=== PATIENT | female | born 1970 | race African-American/Black ===

== ENCOUNTER 2018-11-20 10:50 | Inpatient (IN) | payer OTHER ==
[~2018-11-20] VITALS: Ht 157.5 cm; Wt 74.4 kg
[2018-11-20 11:45] LABS: BASOPHILS % 0.9 % (0.0-2.0); EOSINOPHILS % 1.3 % (0.0-5.0); HEMATOCRIT. 42.3 % (36.0-48.0); HEMOGLOBIN. 13.9 g/dL (12.0-16.0); LYMPHOCYTES % 27.6 % (20.0-50.0); MEAN CORPUSCULAR HEMOGLOBIN 30.8 pg (28.0-32.0); MEAN CORPUSCULAR VOLUME 93.9 fL (81.0-99.0); MEAN PLATELET VOLUME 8.8 fl (7.4-10.4); MONOCYTES % 5.3 % (2.0-8.0); NEUTROPHILS % 64.9 % (40.0-76.0); PLATELET 331 x1000/uL (130-400); RED BLOOD CELL COUNT 4.51 mill/uL (4.2-5.4)
[2018-11-20 11:53] LABS: CHLORIDE 107 mEq/L (98-107)
[2018-11-20 11:54] LABS: PARTIAL THROMBOPLASTIN TIME 28.9 sec (23.4-31.0); PROTHROMBIN TIME 10.5 sec (9.6-11.0)
[2018-11-20 12:02] LABS: LDL CHOLESTEROL 124 mg/dL (5-100)
[2018-11-20 12:14] LABS: HCG SCREEN NEGATIVE
[2018-11-20] MEDS ORDERED: IOHEXOL-350 100 ML BOTTLE ONE (12:32)
[2018-11-20] MEDS ORDERED: ASPIRIN 325MG EC TABLET PO ONE (12:45)
[2018-11-20 13:22] LABS: CHLORIDE 106 mEq/L (98-107)
[2018-11-20] MEDS ORDERED: ACETAMINOPHEN 325MG TABLET PO PRN (16:30)
[2018-11-20] MEDS ORDERED: ONDANSETRON HCL 4MG/2ML INJ IV PRN (16:30)
[2018-11-20 17:00] VITALS: BP 159/85
[2018-11-20] MEDS ORDERED: ENOXAPARIN 40MG/0.4ML SYR SUBCUT SCH (17:30)
[2018-11-20] MEDS ORDERED: MORPHINE SULFATE 2 MG/ML CPJ (NOT FOR IM USE) IV PRN (18:45)
[2018-11-20 20:00] VITALS: BP 124/70
[2018-11-20] MEDS ORDERED: ATORVASTATIN CALCIUM 40MG TABLET PO SCH (21:00)
[2018-11-20] MEDS: HYDROCODONE/ACETAMINOPHEN 5/325MG TABLET PO PRN (22:17)
[2018-11-20] MEDS: AMLODIPINE 5MG TABLET PO SCH (22:18)
[2018-11-21] VITALS: BP 106/63
[2018-11-21 04:00] VITALS: BP 116/70
[2018-11-21 07:34] LABS: CHLORIDE 106 mEq/L (98-107)
[2018-11-21 07:40] LABS: BASOPHILS % 0.8 % (0.0-2.0); EOSINOPHILS % 1.8 % (0.0-5.0); HEMATOCRIT. 39.8 % (36.0-48.0); HEMOGLOBIN. 13.2 g/dL (12.0-16.0); LYMPHOCYTES % 39.7 % (20.0-50.0); MEAN CORPUSCULAR HEMOGLOBIN 30.8 pg (28.0-32.0); MEAN CORPUSCULAR VOLUME 93.1 fL (81.0-99.0); MEAN PLATELET VOLUME 8.5 fl (7.4-10.4); MONOCYTES % 6.6 % (2.0-8.0); NEUTROPHILS % 51.1 % (40.0-76.0); PLATELET 314 x1000/uL (130-400); RED BLOOD CELL COUNT 4.28 mill/uL (4.2-5.4); RED CELL DISTRIBUTION WIDTH 13.9 % (11.6-14.6)
[2018-11-21 08:00] VITALS: BP 128/78
[2018-11-21] MEDS ORDERED: ASPIRIN 81MG TABLET PO SCH (09:00)
[2018-11-21] MEDS: AMLODIPINE 5MG TABLET PO SCH (09:03)
[2018-11-21] MEDS: HYDROCODONE/ACETAMINOPHEN 5/325MG TABLET PO PRN (09:03)
[2018-11-21 14:24] VITALS: BP 128/78
== END 2018-11-21 16:21 | disposition home or self-care (01) | DRG 47 ==
LOC: ER 10:50 → 6WST 16:14 → EDBEDREQ 16:20 → EDBEDREQTM 16:20 → ENRESERV 16:33 → 6WST 11-21 01:30
PROVIDERS: ADMIT Internal Medicine; ATTEND Internal Medicine
DX: G45.9 Transient cerebral ischemic attack, unspecified (principal); E87.5 Hyperkalemia; I10 Essential (primary) hypertension; E78.5 Hyperlipidemia, unspecified; Z59.7 Insufficient social insurance and welfare support; Z88.2 Allergy status to sulfonamides
CPT/HCPCS: 36415; 70496; 70498; 70551; 71045; 72141; 72148; 80048; 82962; 83721; 84484; 84703; 93005; 93970; 96372; 97162; 99291; J1650; Q9967

== ENCOUNTER 2020-02-01 13:49 | Emergency (ER) | payer MEDICAID, OTHER ==
[~2020-02-01] VITALS: Ht 157.5 cm; Wt 68.0 kg
[2020-02-01] MEDS ORDERED: ACETAMINOPHEN 325MG TABLET PO ONE (14:30)
[2020-02-01] MEDS ORDERED: ALBUTEROL 6.7GM HFA INHALER ORI ONE (15:00)
[2020-02-01 15:25] LABS: BASOPHILS % 0.6 % (0.0-2.0); EOSINOPHILS % 0.2 % (0.0-5.0); HEMATOCRIT. 42.9 % (36.0-48.0); HEMOGLOBIN. 14.1 g/dL (12.0-16.0); LYMPHOCYTES % 24.6 % (20.0-50.0); MEAN CORPUSCULAR HEMOGLOBIN 29.7 pg (28.0-32.0); MEAN CORPUSCULAR VOLUME 90.1 fL (81.0-99.0); MEAN PLATELET VOLUME 8.6 fl (7.4-10.4); MONOCYTES % 6.6 % (2.0-8.0); PLATELET 265 x1000/uL (130-400); RED BLOOD CELL COUNT 4.76 mill/uL (4.2-5.4); RED CELL DISTRIBUTION WIDTH 13.5 % (11.6-14.6)
[2020-02-01 15:34] LABS: CHLORIDE 101 mEq/L (98-107)
[2020-02-01] MEDS ORDERED: SODIUM CHLORIDE 0.9% 1,000 ML IV NR (16:00)
[2020-02-01 16:13] VITALS: BP 133/77
== END 2020-02-01 16:27 | disposition home or self-care (01) ==
LOC: ER 13:49
DX: U07.1 COVID-19 (principal); I10 Essential (primary) hypertension; Z88.2 Allergy status to sulfonamides
CPT/HCPCS: 36415; 71045; 80048; 83605; 85025; 87040; 87804; 96360; 99284; C9803; U0003; Z7610